=== PATIENT | female | born 1995 | race Two or more races ===

== ENCOUNTER → 2016-07-19 | Outpatient (REF) | payer OTHER | LOC: M SFHCLERA 13:54 | PROVIDERS: ATTEND Nurse Practitioner Family | DX: R10.84 Generalized abdominal pain (principal) ==

== ENCOUNTER → 2016-07-19 | Outpatient (CLI) | payer OTHER ==
--- NOTE | 2016-07-19 14:07 | REP ---
ABDOMEN, FLAT/UPRIGHT PA CHEST, FIVE VIEWS: HISTORY: Abdominal pain. A small amount of air is present in small and large intestine. There are no air-fluid levels or dilated loops of intestine. There is no pneumoperitoneum. A mild amount of stool is present in the colon. The lungs are clear. IMPRESSION: 1. Nonspecific bowel gas pattern. 2. There is a mild amount of stool in the colon. Signed by Moustapha Yost MD 07/19/2016 02:11 P
== END ==
LOC: M LRY 13:03
PROVIDERS: ATTEND Nurse Practitioner Family
DX: R10.84 Generalized abdominal pain (principal)
CPT/HCPCS: 74022; 87086; 87491; 87591; G0463

== ENCOUNTER → 2016-07-20 | Outpatient (REF) | payer OTHER | LOC: M SFHCLERA 12:15 | PROVIDERS: ATTEND Nurse Practitioner Family | DX: R10.84 Generalized abdominal pain (principal) ==